=== PATIENT | female | born 1965 | race African-American/Black ===

== ENCOUNTER 2016-09-14 12:04 | Emergency (ER) | payer MEDICAID ==
[2016-09-14 12:13] VITALS: TEMP 97.8; BMI 36.3
[2016-09-14] MEDS ORDERED: KETOROLAC TROMETHAMINE 60 MG/2 ML SDV IM ONE (14:06)
[2016-09-14] MEDS ORDERED: DIPHENHYDRAMINE 25 MG CAP PO ONE ×2 (14:06→14:44)
[2016-09-14] MEDS ORDERED: ONDANSETRON HCL 4 MG ODT TAB PO ONE (14:06)
--- NOTE | 2016-09-14 14:57 | EDPRACDOC ---
- General Information Chief Complaint: Headache Stated Complaint: HEADACHE Time Seen by Provider: 09/14/16 13:30 Information Source: Patient Home Medications: Home Medications Amlodipine Besylate [Norvasc] 5 mg PO QAM 08/13/14 Lisinopril/Hydrochlorothiazide [Zestoretic 20-25 mg Tablet] 1 tab PO QAM Pregabalin [Lyrica] 200 mg PO TID 01/08/16 Alprazolam [Xanax] 0.5 mg PO BID PRN 04/09/16 Oxycodone Immediate Release [Oxycodone Immediate Release (OxyIR)] 10 mg PO TID PRN 04/17/16 Butalb/Acetamin/Caffeine [Fioricet] 1 each PO Q4-6H #30 tab 09/14/16 Naproxen [Naprosyn] 500 mg PO BID PRN 09/14/16 Ondansetron HCl [Zofran] 4 mg PO Q6H PRN #20 tab 09/14/16 Allergies/Adverse Reactions: Allergies Allergy/AdvReac Type Severity Reaction Status Date / Time No Known Allergies Allergy Verified 09/14/16 12:13 - History of Present Illness Onset: LAST NIGHT HPI: PT PRESENTS TODAY WITH AOC MIGRAINE ISIDRO. NO NEW SYMPTOMS. NO APPARENT DISTRESS. Location: Reports: Generalized Pain Quality: Reports: Moderate, Throbbing, Like Previous Headaches Relevant History of: Reports: Known Headache disorder Associated Signs and Symptoms: Reports: Frequent Headaches, Nausea/Vomiting ED Past Medical History - History Reviewed Yes Nurses notes reviewed and agree except as marked - Patient Medical History Neurological History: Denies: Seizures, Dementia. Comment Only: Cerebrovascular Accident (Yes-2013 mild left side weakness) Cardiac History: Reports: Hypertension, Heart Attack ([place]), Hypercholesterolemia. Denies: Atrial Fibrillation Respiratory History: Reports: COPD. Denies: Asthma, Pneumonia, Emphysema GI/ History: Reports: Renal Disease, Urinary Tract Infection. Denies: Gastroesophageal Reflux Musculoskeletal History: Denies: Gout. Comment Only: Arthritis (left knee) Psychological History: Reports: Substance Use Disorder (TOBACCO). Denies: Depression, Anxiety Systemic History: Reports: Anemia. Denies: Cancer, Diabetes Additional Past Medical History: CHRONIC PAIN SYNDROMES Surgical History: Reports: Cholecystectomy, Other (ANEURYSM CLIPPING). Denies: Hysterectomy - Family Medical History Reports: Hypertension, Stroke (dad), Cardiac Disorders (YES, FATHER [place]). Denies : Diabetes, Cancer - Social Medical History Smoking Status: Heavy tobacco smoker (5 or more cigarettes/day or daily pipe/ cigar) Social History: Reports: Substance Use Disorder (TOBACCO) EDM Review of Systems - Review of Systems ROS Negative Except as Marked: Yes All systems reviewed and were negative except as marked Constitutional: No Symptoms Reported Eyes: Photophobia Ears: No Symptoms Reported Throat: No Symptoms Reported Nose: No Symptoms Reported Respiratory: No Symptoms Reported Cardiovascular: No Symptoms Reported Gastrointestinal: Nausea, Vomiting Neurological: Headache Musculoskeletal: No Symptoms Reported Integumentary: No Symptoms Reported - Physical Exam Constitutional: Alert (Awake), No apparent distress Oriented to: Time, Person, Place Last recorded Vital Signs: Last Vital Signs Temp 97.8 F 09/14/16 12:09 Pulse 99 09/14/16 12:09 Resp 18 09/14/16 12:09 BP 120/77 09/14/16 12:09 Pulse Ox 97 09/14/16 12:09 Oxygen Pulse Oxygen Saturation 97 O2 Device Oxygen Flow Rate Fraction of Inspired Oxygen ( FIO2) - HEENT Head: Normal Eye Exam: Normal Oropharynx: Normal Tympanic Membrane: Normal ENT EAC: Normal Nose: No Symptoms Reported Neck: Normal, Denies Pain, Midline - Respiratory/Cardiovascular Respiratory: Normal - CTA Cardiovascular: Normal - GI Palpation: Normal Tenderness: Non tender - Musculoskeletal Back: Normal Extremities: Normal - Integumentary Skin: Normal Lymphatics: Normal - Neurologic Cerebellar: Normal Mood Description: Normal Thought: Coherent Perception: Normal Decision Time to Discharge: 14:56 - Departure Disposition: Home Condition: Stable Final Diagnosis: Migraine Instructions: Migraine Headache (ED) Education/Counseling Given To: Patient Education/Counseling Given Regarding: Diagnosis, Treatment, Follow Up Referrals: Rocky Zheng MD [Primary Care Provider] - One Week Prescriptions: Butalb/Acetamin/Caffeine [Fioricet] 1 each PO Q4-6H #30 tab Ondansetron HCl [Zofran] 4 mg PO Q6H PRN #20 tab PRN Reason: Nausea/Vomiting Additional Instructions: PLEASE FOLLOW UP WITH PCP REGARDING HEADACHES.
[2016-09-14 15:11] VITALS: BP 126/72; PULSE 94
== END 2016-09-14 15:11 | disposition home or self-care (01) ==
LOC: ED 12:04
DX: G43.909 Migraine, unspecified, not intractable, without status migrainosus (principal)
CPT/HCPCS: 96372; 99283; J1885; J3490